=== PATIENT | male | born 2005 | race African-American/Black ===

== ENCOUNTER 2024-09-05 07:02 | Emergency (ER) | payer OTHER | END 2024-09-05 09:15 | disposition home or self-care (01) | LOC: ERS 07:02 | DX: M62.838 Other muscle spasm (principal); F41.9 Anxiety disorder, unspecified; I10 Essential (primary) hypertension; F17.210 Nicotine dependence, cigarettes, uncomplicated; F17.290 Nicotine dependence, other tobacco product, uncomplicated | CPT/HCPCS: 71045; 93005 ==